=== PATIENT | female | born 1945 | race Caucasian/White ===

== ENCOUNTER 2017-11-29 05:53 | Inpatient (IN) | payer MEDICARE ==
[2017-11-18 10:24] LABS: ABSOLUTE BASOPHILS 0.1 thou/uL (0.0-0.2); ABSOLUTE EOSINOPHILS 0.2 thou/uL (0.0-0.7); ABSOLUTE MONOCYTES 0.5 thou/uL (0.0-1.2); BASOPHILS 1.4 %; EOSINOPHILS 2.8 %; HEMATOCRIT 41.3 % (37.0-47.0); HEMOGLOBIN 13.9 gm/dL (12.0-15.0); LYMPHOCYTES 18.2 %; MCH 30.1 pg (26.0-34.0); MCHC 33.6 g/dL (28.0-37.0); MCV 89.5 fL (80.0-100.0); MONOCYTES 8.4 %; MPV 8.8 fl. (7.2-11.1); NUCLEATED RBCS 0 /100WBC; PLATELET COUNT* 242 thou/uL (150-400); POLYS 69.2 %; RBC 4.61 mil/uL (4.20-5.00); RDW-CV 13.2 % (10.5-14.5); WBC 5.7 thou/uL (4.0-11.0)
[2017-11-18 10:29] LABS: APTT 26.3 Seconds (25.0-31.3); INR 1.1; PROTIME 10.3 Seconds (9.20-11.50)
[2017-11-18 10:33] LABS: ALBUMIN 3.6 g/dL (3.4-5.0); CREATININE 1.1 mg/dL (0.6-1.3); POTASSIUM 3.6 mmol/L (3.5-5.1); TOTAL BILIRUBIN 0.5 mg/dL (<0.1-1.0); TOTAL PROTEIN 6.6 g/dL (6.4-8.2)
[2017-11-18 11:21] LABS: ESR (SEDRATE) 6 mm/hr (0-30)
--- NOTE | 2017-11-18 15:23 | EKG ---
[place] [address] ELECTROCARDIOGRAM REPORT Name: CINDY PEREZ Room: PRE IN [facility]#: [id number] Admission: Attend Phys: Joseph Alex Discharge: Date of : 43 Report #: [id number] THIS REPORT FOR: //name// [facility] Test Date: 2017-11-18 Test Time: 09:37:46 Pat Name: CINDY CHRIS Department: Room: Gender: F Compensation Business Partner: : [id number] Requested By: Arnaldo Bear Order Number: [id number] Reading MD: Jason Spence Measurements Intervals [place] Rate: 70 P: 68 WI: 156 QRS: -1 QRSD: 131 T: 52 QT: 408 QTc: 441 Interpretive Statements Sinus rhythm Right bundle branch block Compared to ECG 10/26/2008 13:43:14 Right bundle-branch block now present Sinus tachycardia no longer present Electronically Signed On 11-18-2017 15:23:31 CDT by Jason Spence [email or web address] <ELECTRONICALLY SIGNED> By: Jason Spence MD, [facility] 11/18/17 1523 0937 0937 Jason Spence MD, FACC /EPI
[2017-11-19 03:14] LABS: GLYCOHEMOGLOBIN (HGB A1C) 4.7 % (4.8-5.6)
[~2017-11-29] VITALS: Ht 147.3 cm; Wt 83.9 kg
[~2017-11-29 05:53] MED LIST: CARISOPRODOL 3350 MG PO; KLOR-CON 1010 MEQ PO; LOSARTAN-HCTZ1 EAC1 PO; NORVASC5 MG PO; OXYBUTYNIN 5 MG5 M2 PO; PROTONIX40 M1 PO; REQUIP0.5 MG PO; SPIRIVA INH; SYNTHROID88 MCG PO; VENTOLIN HFA 1818 GM INH
[2017-11-29 07:50] VITALS: BP 132/64
[2017-11-29 12:30] VITALS: BP 132/50
--- NOTE | 2017-11-29 13:45 | NUR ---
ASSUMED CARES OF PT FROM PACU AT 1120. PT IN BED, BED IN LOW LOCKED POSITION. FALL PRECAUTIONS IN PLACE. PT EDUCATED ON ROOM. CALL BUTTON AND PERSONAL ITEMS IN PT REACH. PT A&O X4, HRRR PER AUSCULTATION, LCTAB, VSS ON RA, ABD SOFT TO PALPATION, DENIES N/V. PULSES RADIAL AND PEDAL +2 WNL. CAP REFILL <3 SEC. PT AFEBRILE, PERRLA, SKIN INTACT WITH SCATTERED BRUISING, A SCRATCH FROM PET AT HOME ON LEFT FA, PICTURE TAKEN AND FILED IN CHART. MESSER PATENT WITH CLEAR LIGHT YELLOW URINE. RIGHT KNEE REPLACEMENT, PAIN CONTROLLED WITH PO MEDS AND ICE BAG. LEFT HAND 20 GAUGE IV PATENT WITH 1/2 NS INFUSING AT 100 ML/HR. PT PLEASANT, COOPERATIVE. ORDERS FOR PT UP WITH ASSIST, TO CHAIR, EARLY AMBULATION, WBAT. HOURLY ROUNDING CONTINUES, PT PROGRESSING TOWARDS GOAL. SPOUSE AT BEDSIDE. WILL CONTINUE TO MONITOR PT PROGRESS AND STATUS.
[2017-11-29 15:42] VITALS: BP 116/57
[2017-11-29 20:00] VITALS: BP 116/44
--- NOTE | 2017-11-29 20:09 | NUR ---
this nurse assumes care of pt at 1915, pt is alert and oriented x4, pt rates left knee pain 5/10, ice pack in place, pt reports that she is SOA with exertion, feels tingling in rt knee, pulses 2/2, dressing dry and intact, pt denies n/v, woodard cath intact to dependent drainage, iv fluids infusing without difficulty, pt resting in bed, bed in lowest position, call light within reach, bed alarm on
--- NOTE | 2017-11-29 20:42 | NUR ---
REPORT TO INPATIENT PHARMACIST FOR CONTINUED CARES. PT REMAINS STABLE, VSS ON RA. FALL PRECAUTIONS IN PLACE. HOURLY ROUNDING COMPLETED. PT PROGRESSING TOWARDS GOAL.
[2017-11-30 00:26] VITALS: BP 130/50
[2017-11-30 04:52] LABS: HEMOGLOBIN 11.2 gm/dL (12.0-15.0)
--- NOTE | 2017-11-30 05:07 | NUR ---
pt experiences anxiety and restlessness throughout the night, pt recieves prn pain meds and antianxiety medication, pt reports feeling better this morning, but continues to be restless, pt on 2L supplemental o2 via nc due to desat while asleep, pt has not been up out of bed this shift, ice to rt knee continuously, estela hose on and scds on, pules to RLE normal, cap refill less than 3 seconds
[2017-11-30 05:12] VITALS: BP 136/40
[2017-11-30 07:30] VITALS: BP 146/48
--- NOTE | 2017-11-30 09:22 | NUR ---
RECIEVED O.T. EVAL AND TX ORDERS. WILL DEFER TO P.T. AND NURSING AT THIS TIME. PLEASE ORDER FURTHER O.T. SERVICES IF NEEDED.
--- NOTE | 2017-11-30 14:17 | NUR ---
PT.HAVING DIFFICULTY GETTING COMFORTABLE IN BED. HAD PAIN MEDS 20 MIN.AGO. SAID SHE LIVES WITH HER . HE WILL BE WITH HER AT DISCHARGE. THEY LIVE IN [place]. WOULD LIKE HOME HEALTH INITIALLY. WOULD LIKE TO USE [facility] IF THEY COME TO HER AREA. SHE WILL NEED A WALKER. HER PHARMACY IS [facility] ON . SHE SAID SHE IS NORMALLY INDEPENDENT AT HOME. HOPES TO GO HOME TOMRROW. CM WILL ORDER A WALKER THROUGH [facility] [facility] AND GET SET UP.
[2017-11-30 16:09] VITALS: BP 141/61
[2017-11-30 17:43] VITALS: BP 141/61
--- NOTE | 2017-11-30 18:50 | NUR ---
ALERT AND ORIENTED X4 PATIENT GETTING FORGETFUL THIS EVENING. IV IS PATENT AND SALINE LOCKED. PAIN BEING MANAGED WITH PO AND IV PAIN MEDICATION. DENIES NAUSEA. UP WITH 1 WITH WALKER AND GAIT BELT. ATTENDED PHYSICAL THERAPY TWICE THIS SHIFT. ICE PACK IN PLACE. DRESSING IS C/D/I. ADALGISA HOSE IN PLACE BILATERALLY. VSS ON ROOM AIR. HOURLY ROUNDS HAVE BEEN MAINTAINED THROUGHOUT SHIFT. CALL LIGHT IS WITHIN REACH. NURSING WILL CONTINUE TO MONITOR.
[2017-11-30 20:00] VITALS: BP 111/63
[2017-12-01] VITALS (8 sets, daily range): BP systolic 115–146; BP diastolic 44–68
[2017-12-01 04:03] LABS: HEMATOCRIT 32.2 % (37.0-47.0); HEMOGLOBIN 11.3 gm/dL (12.0-15.0)
--- NOTE | 2017-12-01 04:48 | NUR ---
PATIENT ALERT AND ORIENTED THROUGHOUT SHIFT. VITAL SIGNS STABLE ON ROOM AIR. PAIN CONRTOLLED WITH PO MEDICATION. GIVEN IN REPORT THAT PATIENT CAN BECOME FORGETFUL WITH PAIN MEDICATION. BILATERAL ADALGISA HOSE AND SCD'S IN PLACE. IV PATENT AND SALINE LOCKED IN THE RIGHT HAND. VOIDING FREQUENTLY THROUGOUT SHIFT. HAVING DIFFICULTY GETTING COMFORTABLE IN BED. ICE AND REPOSITIONING WERE USED THROUGHOUT SHIFT TO TRY TO HELP WITH DISCOMFORT. THE PLAN WAS TO DISCHARGE TODAY BUT PATIENT IS STATING SHE FEELS LIKE SHE IS NOT READY TO GO HOME AT THIS TIME. SHE HAS BEEN VERY RESTLESS THIS EVENING. RESTING IN BED AT THIS TIME. CALL LIGHT WITHIN REACH. BED ALARM IN PLACE. NURSING WILL CONTINUE TO MONITOR.
[2017-12-01] MEDS ORDERED: NEURONTIN 300300 M1 PO (08:18)
[2017-12-01] MEDS ORDERED: COLACE 100 MG100 MG PO (08:18)
[2017-12-01] MEDS ORDERED: OXYCODONE HCL 55 MG PO (10:49)
[2017-12-01] MEDS ORDERED: ELIQUIS2.5 MG PO (10:50)
--- NOTE | 2017-12-01 14:09 | NUR ---
CALLED IN PRESCRIPTION FOR ELQUIS WRITTEN TO PT[facility]S PHARMACY [facility] [address] CALLED AT THIS TIME AND COPAY IS $16.45. WILL INFORM PT. PT.WILL NEED A WALKER. SPOKE WITH MAJOR/MONICA VANESSA. SHE OKD PT.TO RECEIVE A WALKER FROM THERAPY PRIOR TO DISCHARGE. ORDER OBTAINED AND FAXED TO MAJOR/[phone]. GAVE ORDER TO AFRICA/Terrell PT.CHOSE [facility] FOR HOME HEALTH. SPOKE WITH ABELARDO/JOSH AND FAXED ORDERS,H&P,OP REPORT,FACE SHEET AND FACE TO FACE FORM TO HER.
--- NOTE | 2017-12-01 14:43 | NUR ---
Agree with student nurse, Tati Mckeon's, documentation
--- NOTE | 2017-12-01 15:14 | NUR ---
P.T.RECOMMENDS PT.NOT GO HOME TODAY. SHE IS IMPULSIVE AND NOT FOLLOWING DIRECTIONS. IS FORGETTFUL. DISCUSSED WITH . NOTIFIED ABELARDO/[facility] PT.NOT GOING HOME UNTIL TOMORROW. SHE WILL PUT START OF CARE FOR SUNDAY 12/03.
--- NOTE | 2017-12-01 16:34 | NUR ---
ASSUMED CARE OF PATIENT AFTER MORNING REPORT. ALERT AND ORIENTED X4. ASSESSMENT COMPLETED AND CHARTED. VSS ON ROOM AIR. PATIENT HAS HAD NO COMPLAINTS OF NAUSEA THIS SHIFT. PAIN HAS BEEN MANAGED WITH PAIN MEDICATION. PATIENT WORKED WELL WITH THERAPY TODAY BUT IS IMPULSIVE AND UNSAFE TO DISCHARGE AT THIS TIME. PATIENT IS RESTING COMFORTABLY IN THE CHAIR AT THIS TIME. HOURLY ROUNDS HAVE BEEN MAINTAINED. CALL LIGHT IS WITHIN REACH. NURSING WILL CONTINUE TO MONITOR.
--- NOTE | 2017-12-01 20:15 | NUR ---
PATIENT STATED SHE WAS NOT ABLE TO EMPTY HER BLADDER THROUGOUT THE DAY. ASSISTED TO COMMODE AND COMPLETED A POST BLADDER SCAN. SCAN SHOWED 550CC. PHYSICIAN WAS PAGED. ORDER GIVEN TO INSERT MESSER CATHETER. UROLOGY CONSULT PLACED.
[2017-12-02 04:00] VITALS: BP 139/54
--- NOTE | 2017-12-02 04:50 | NUR ---
PATIENT ALERT AND ORIENTED THROUGHOUT SHIFT. VITAL SIGNS STABLE ON ROOM AIR. MESSER PLACED EARLIER IN THE SHIFT PATENT DRAINING CLEAR YELLOW URINE. IV PATENT AND SALINE LOCKED IN THE RIGHT HAND. PAIN WAS MANAGED WITH PO MEDICATION. PATIENT DENIED NAUSEA. REPOSITIONING SELF. USING ICE PACKS TO HELP RELIEVE PAIN. CALL LIGHT WITHIN REACH. FALL PRECAUTIONS AND HOURLY ROUNDING MAINTAINED. NURSING WILL CONTINUE TO MONITOR.
[2017-12-02 07:56] VITALS: BP 116/54
--- NOTE | 2017-12-02 12:20 | S ---
[address] [address] SURGICAL PATH RPT PROCEDURE Name: CINDY GRAHAM Room: [address] M.R.#: [id number] Admission: 11/29/17 Date of : 43 Discharge: Report #: [id number] Path Case #: [id number] PATHOLOGY REPORT COLLECTION DATE: 11/29/2017 RECEIVED DATE: 11/29/2017 SUBMITTING PHYS: Dr. Arnaldo Bear OTHER PHYS: Dr. 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 (GISELA:mgr; 12/01/2017) PATHOLOGIST: Mnaan Gonzales M.D. REPORT ELECTRONICALLY SIGNED BY: Manan Gonzales M.D. DATE/TIME: 12/02/2017 12:20 * * * * * * * * * * * * GROSS PATHOLOGY: Received in formalin labeled "Cindy Graham, right total knee bone and tissue," are multiple segments of bone, including tibial plateau, measuring 13.3 x 9.3 x 2.4 cm in aggregate dimensions admixed with soft tissue; meniscus is present. The specimen shows focal eburnation of the articular surfaces. Peoplesoft sections of bone and soft tissue are submitted in cassette A1, following decalcification. (DAC; 11/30/2017) CLINICAL HISTORY: Right knee DJD INITIAL CPT CODE(S): A; 21435, 85055 Professional services performed [place] [facility] [place] [address] Technical services performed by [facility] at [address] [place] [address] SURGICAL PATH RPT PROCEDURE Name: CINDY GRAHAM Room: [address] IN [facility].#: [id number] Admission: 11/29/17 Date of : 43 Discharge: Report #: [id number] Path Case #: [id number] [place] [address]. [facility] [address] [address] PHONE: [phone] DIRECTOR: Faizan Mcgill M.D. * * * END OF REPORT * * *
[2017-12-02 15:36] LABS: URINE BILIRUBIN NEGATIVE (Negative); URINE BLOOD TRACE (Negative); URINE CLARITY CLEAR; URINE COLOR YELLOW; URINE GLUCOSE-RANDOM NEGATIVE (Negative); URINE KETONES NEGATIVE (Negative); URINE LEUKOCYTES 2+ (Negative); URINE NITRITE NEGATIVE (Negative); URINE PROTEIN NEGATIVE (Negative); URINE SPECIFIC GRAVITY <= 1.005 (1.005-1.030); URINE UROBILINOGEN 0.2 E.U./dl (0.2-1.0)
[2017-12-02 15:44] LABS: BACTERIA None Seen /HPF (None Seen); CASTS None Seen /LPF (None Seen); CRYSTALS None Seen /LPF (None Seen); SQUAMOUS 4-10 Moderate /LPF (0-3); URINE RBC None Seen /HPF (0-2); URINE WBC 6-15 Few /HPF (0-5)
[2017-12-02 16:03] VITALS: BP 106/41
[2017-12-02] MEDS ORDERED: FLOMAX0.4 MG PO (16:25)
[2017-12-02] MEDS ORDERED: CIPRO500 MG PO (16:29)
--- NOTE | 2017-12-02 17:48 | NUR ---
ASSUMED CARE OF PATIENT AFTER MORNING REPORT. ALERT AND ORIENTED X4. ASSESSMENT COMPLETED AND CHARTED. VSS ON ROOM AIR. PATIENT HAS NO COMPLAINTS OF NAUSEA THIS SHIFT. PAIN HAS BEEN MANAGED WITH PAIN MEDICATION. PATIENT WORKED WITH THERAPY WELL TODAY. PATIENT WAS RETAINING URINE AND A MESSER WAS INSTERTED. UROLOGY WAS CONSULTED AND A FOLLOW UP HAS BEEN SCHEDULED. PATIENT TO GO HOME WITH MESSER IN PLACE AND FOLLOW UP ON December WITH UROLOGY. PATIENT DISCHARGED AT 1740. ALL PERSONAL BELONGING LEFT WITH PATIENT. PRESCRIPTIONS AND DISCHARGE INFORMATION SENT WITH PATIENT UPON DISCHARGE.
--- NOTE | 2018-01-03 16:45 | OP ---
[address] [address] OPERATIVE REPORT Name: CINDY PEREZ Room: [address]#: [id number] Admission: 11/29/17 Attend Phys: Joseph Alex Discharge: 12/02/17 Date of : 43 Report #: [id number] THIS REPORT FOR: //name// CC: Viviana Escobedo DICTATED BY: Bryce Canela DO DATE OF SERVICE: 11/29/2017 PREOPERATIVE DIAGNOSIS: Right knee degenerative joint disease. POSTOPERATIVE DIAGNOSIS: Right knee degenerative joint disease. PROCEDURE: Right total knee arthroplasty. SURGEON: Arnaldo Bear DO SENIOR LOGISTICS MANAGER: Bryce Canela DO and Anupam Lizama DO. ANESTHESIA: Spinal with sedation. ESTIMATED BLOOD LOSS: 100 mL. ANTIBIOTICS: 2 grams Ancef IV preoperatively. TOURNIQUET TIME: 52 minutes at 295 mmHg to the right lower extremity. SPECIMENS: None. DRAINS: None. COMPLICATIONS: None. DISPOSITION: Stable to PACU and will be admitted to the hospital for standard postoperative care. IMPLANTS: Right total knee arthroplasty utilizing Biomet PeekYouguard knee system with the following components: 1. Right 62.5 mm CR femoral component. 2. Right fixed cruciate tibial baseplate, size 71 mm. 3. A 10 mm anterior stabilized polyethylene tibial bearing. INDICATION FOR PROCEDURE: The patient is a pleasant 72-year-old female who was seen multiple times in orthopedic clinic with complaints of right knee pain. On [facility] [address] [place] [address] OPERATIVE REPORT Name: CINDY PEREZ Room: [address] IN .R.#: [id number] Admission: 11/29/17 Attend Phys: Joseph Alex Discharge: 12/02/17 Date of : 43 Report #: [id number] radiograph she was found to have degenerative joint disease, most notably in the medial compartment. We did perform a valgus stress view, which seemed to imply that she had a fair amount of articular cartilage left in the lateral compartment. Therefore, originally she was boarded for right unicompartmental knee arthroplasty versus total knee arthroplasty. Her right knee pain was refractory to conservative measures consisting of greater than 3 months of home physical therapy exercises, activity modification, attempted weight loss, oral anti-inflammatories and multiple intra-articular corticosteroid injections; therefore, recommendation was made to proceed with a right unicompartmental knee arthroplasty versus total knee arthroplasty. Risks, benefits, complications, indications, alternatives were discussed and the patient wished to proceed with surgery today. DESCRIPTION OF PROCEDURE: The patient was seen in preoperative holding area. Correct operative site, right knee was initialed. The patient was taken back to operating suite, placed in supine position on the operating table, a spinal was performed at this time and given the benefit of light sedation throughout the procedure. A well-padded tourniquet was placed on the right upper extremity and it was prepped and draped in typical fashion. Initially, we started preparation for a unicompartmental knee arthroplasty, so we did have the typical leg staton positioned appropriately for this. Surgery began after timeout, identifying correct patient, correct procedure, preoperative antibiotics, correct performing surgeon, correct operative site. Next, the tourniquet was inflated over the right lower extremity. Our standard roughly midline anterior knee incision was made just cheating over the medial aspect of the patellar tendon in a typical unicompartmental knee fashion. The skin was incised with a 20 blade scalpel. Prepatellar fascia and medial patellar retinacular layers were identified. Next, our standard medial parapatellar arthrotomy was performed extending just from the superior pole of the patella to the tibial tubercle. Next, our standard medial subperiosteal tibial dissection was performed and anterior horn of the medial meniscus was excised. Fat pad was also partially excised at this time to allow for appropriate visualization. 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 At this point, we elected to proceed with a total knee arthroplasty instead of a unicompartmental knee arthroplasty. Next, we continued by extending our skin incision proximally into more of a standard total knee arthroplasty skin incision. This was done with the skin knife down to the level of the quadriceps tendon and investing fascia. Next, our medial parapatellar arthrotomy was extended proximally to the typical point nearly 4 cm proximal to the superior pole of the patella. Next, patella was everted. Extraneous infrapatellar fat pad was excised and debris from the lateral tibial plateau was also excised for better visualization. Next, the anterior cruciate ligament was excised. We inserted our intramed[place] [id number] OPERATIVE REPORT Name: CINDY PEREZ Room: [address] IN [place]#: [id number] Admission: 11/29/17 Attend Phys: Joseph Alex Discharge: 12/02/17 Date of : 43 Report #: [id number] starting point of roughly 1 cm anterior to the origin of the PCL, followed by our intramedullary distal femur cutting guide, which was pinned into place. We resected roughly a 9 mm cut. Bony debris was removed. Next, attention was turned to the tibia where the extramedullary tibial guide was placed on the tibia and was aligned appropriately on the medial third of the tibial tubercle and down the tibial crest and in line with the mid aspect of the talus and second metatarsal. Her slope was found to be rather appropriate. We measured 10 mm off the high side, which was lateral tibial plateau. We then shifted our cutting block up 2 mm, resecting roughly 8 mm of bone off our proximal tibia. The tibia was then cut with a reciprocating saw. All bony debris was removed. Extramedullary tibial guide was removed. The 10 mm spacer block was inserted and found to be rather sufficient bone cut. Therefore, we continued turning our attention back to the femur. Using the AP sizing guide, we found that 62.5 mm femoral component was rather appropriate. Therefore, we impacted our 4-in-1 cutting block using 3 degrees external rotation. Our anterior, posterior and anterior, posterior chamfer femur cuts were performed at this time, all bony debris was removed. Next, our lateral and medial menisci were excised using electrocautery. Our tibia was sized to roughly 71 mm. This was pinned into place after using the attachable drop carmita for proper alignment. Next, our trial femur was impacted into place followed by 10-mm polyethylene spacer. The knee was taken through range of motion and felt to be stable to varus and valgus stress, and felt to be rather stable with anterior and posterior drawer maneuver at 90 degrees, did seem to be levering off a little bit in full flexion, which was suggesting that we were tight somewhat in flexion. Therefore, at this point, the PCL was released and the tightness in flexion was completely corrected. We did not decide to resurface the patella as cartilage was rather well preserved. The patella was denervated at this time. A trial femur was drilled as well as the tibia was drilled and a cruciate punch. Trial components were removed. The knee was thoroughly irrigated. All exposed bony surfaces of proximal tibia and distal femur were covered with Palacos bone cement. Starting with the tibia and impacted our final tibial tray into place, removed all excess cement. In a similar fashion, we impacted our distal femur component thereafter, removing all excess cement. Then, we placed our final 10 mm polyethylene spacer, which was locked into place using the locking bar. The knee was then positioned at 90 degrees after the patella had been flipped back into its [place] position. A thorough irrigation was performed, tourniquet was deflated and capsule closure initiated with multiple #1 Vicryl sutures in a swehrz-uw-zypzp fashion, followed by #1 Stratafix barbed suture. A thorough irrigation again was performed after closing our capsular layer. Subcutaneous tissues were closed in a simple inverted fashion with 2-0 Monocryl suture, followed by a subcuticular stitch running fashion with 3-0 Stratafix, followed by Dermabond skin glue. Standard dressings were applied consisting of Mepilex and a thigh high ADALGISA hose. The patient was weaned from the light sedation, transferred in stable condition to the PACU. All sponge and needle counts were correct x 2[place] [id number] OPERATIVE REPORT Name: CINDY PEREZ Room: [address] IN ..#: [id number] Admission: 11/29/17 Attend Phys: Joseph Alex Discharge: 12/02/17 Date of : 43 Report #: [id number] Standard PQRS postoperative measures will be implemented. She will receive two doses of postoperative antibiotics within 24 hours as well as appropriate anticoagulation therapy for 2 weeks followed by 4 weeks of additional aspirin for DVT prophylaxis. The patient will also be started with physical therapy for mobility training. <ELECTRONICALLY SIGNED> By: Arnaldo Bear DO 01/03/18 1645 1538 [id number] Bear DO /nt
== END 2017-12-02 17:40 | disposition home health service (06) | DRG 470 ==
LOC: M.TBA 05:53 → M.PRE 06:00 → M.ORTHSURG 11:11 → M.PRE 14:01 → M.ORTHSURG 12-02 17:40
PROVIDERS: Orthopaedic Surgery; Physician Assistant; ADMIT Internal Medicine
PROC: 0SRC0J9 Replacement of Right Knee Joint with Synthetic Substitute, Cemented, Open Approach (ICD-10-PCS; principal; 2017-11-29)
DX: M17.11 Unilateral primary osteoarthritis, right knee (principal); Z96.652 Presence of left artificial knee joint; E03.9 Hypothyroidism, unspecified; I10 Essential (primary) hypertension; J45.909 Unspecified asthma, uncomplicated; K21.9 Gastro-esophageal reflux disease without esophagitis; F41.9 Anxiety disorder, unspecified; J44.9 Chronic obstructive pulmonary disease, unspecified; R33.9 Retention of urine, unspecified; M81.0 Age-related osteoporosis without current pathological fracture; G25.81 Restless legs syndrome; Z79.899 Other long term (current) drug therapy; Z90.710 Acquired absence of both cervix and uterus; Z86.718 Personal history of other venous thrombosis and embolism; Z82.49 Family history of ischemic heart disease and other diseases of the circulatory system

== ENCOUNTER 2017-12-11 18:30 | Emergency (ER) | payer MEDICARE ==
[~2017-12-11] VITALS: Ht 157.5 cm; Wt 88.0 kg
[~2017-12-11 18:30] MED LIST changes: +CIPRO500 MG PO; +COLACE 100 MG100 MG PO; +ELIQUIS2.5 MG PO; +FLOMAX0.4 MG PO; +NEURONTIN 300300 M1 PO; +OXYCODONE HCL 55 MG PO
[2017-12-11] MEDS ORDERED: OXYCONTIN15 MG PO (18:41)
[2017-12-11 19:15] LABS: ABSOLUTE BASOPHILS 0.1 thou/uL (0.0-0.2); ABSOLUTE EOSINOPHILS 0.3 thou/uL (0.0-0.7); ABSOLUTE LYMPHOCYTES 1.1 thou/uL (0.8-5.3); ABSOLUTE MONOCYTES 0.5 thou/uL (0.0-1.2); ABSOLUTE NEUTROPHILS 5.2 thou/uL (1.6-8.1); BASOPHILS 1.5 %; EOSINOPHILS 3.9 %; HEMATOCRIT 28.5 % (37.0-47.0); HEMOGLOBIN 9.6 gm/dL (12.0-15.0); MCH 30.1 pg (26.0-34.0); MCHC 33.7 g/dL (28.0-37.0); MCV 89.3 fL (80.0-100.0); MONOCYTES 6.3 %; MPV 7.3 fl. (7.2-11.1); NUCLEATED RBCS 0 /100WBC; PLATELET COUNT* 387 thou/uL (150-400); POLYS 73.3 %; RDW-CV 13.5 % (10.5-14.5); WBC 7.2 thou/uL (4.0-11.0)
[2017-12-11 19:21] LABS: INR 1.1; PROTIME 10.7 Seconds (9.20-11.50)
[2017-12-11 19:30] LABS: CALCIUM 8.4 mg/dL (8.5-10.1); CREATININE 1.1 mg/dL (0.6-1.3); POTASSIUM 3.8 mmol/L (3.5-5.1); TOTAL BILIRUBIN 0.4 mg/dL (<0.1-1.0); TOTAL PROTEIN 5.9 g/dL (6.4-8.2)
[2017-12-11 20:57] VITALS: BP 153/61
== END 2017-12-11 20:58 | disposition home or self-care (01) ==
LOC: M.ERS 18:30
PROVIDERS: Nurse Practitioner Family
DX: R60.0 Localized edema (principal); E03.9 Hypothyroidism, unspecified; I10 Essential (primary) hypertension; J45.909 Unspecified asthma, uncomplicated; K21.9 Gastro-esophageal reflux disease without esophagitis; G25.81 Restless legs syndrome; F41.9 Anxiety disorder, unspecified; Z86.718 Personal history of other venous thrombosis and embolism; Z96.652 Presence of left artificial knee joint